=== PATIENT | male | born 1985 | race Caucasian/White ===

== ENCOUNTER 2021-06-01 10:44 | Outpatient (REF) | payer MEDICAID, SELFPAY ==
[2021-06-01 12:51] LABS: MANUAL DIFF FLAG NO
[2021-06-01 12:55] LABS: Eosinophils Absolute Auto 0.1 X10*3/uL (0.0-0.4); Eosinophils Percent Auto 0.9 % (0-4); Hematocrit 45.7 % (42-52); Hemoglobin 15.2 g/dl (14.0-18.0); Imm Gran Abs Auto 0.01 X10*3/uL (0.00-0.03); Imm Gran Pct Auto 0.2 % (0.0-0.4); Lymphocytes Absolute Auto 1.5 X10*3/uL (1.2-4.9); Lymphocytes Percent Auto 27.7 % (20-40); Mean Corpuscular HGB Conc 33.3 g/dl (31.0-36.0); Mean Corpuscular Hemoglobin 29.5 pg (27.0-33.0); Mean Corpuscular Volume 88.6 fL (80-98); Mean Platelet Volume 11.8 fL (9.4-12.4); Monocytes Absolute Auto 0.4 X10*3/uL (0.1-1.2); Neutrophils Absolute Auto 3.4 X10*3/uL (2.0-8.3); Neutrophils Percent Auto 64.2 % (45-73); Platelet Count 201 X10*3/uL (160-400); Red Blood Count 5.16 X10*6/uL (4.60-5.80); Red Cell Distribution Width 12.5 % (11.0-16.0); White Blood Count 5.3 X10*3/uL (4.8-10.8)
[2021-06-01 13:46] LABS: Alanine Aminotransferase 35 U/L (0-40); Albumin Level 4.7 g/dL (3.5-5.0); Alkaline Phosphatase 79 U/L (39-117); Anion Gap 15 (12-20); Aspartate Amino Transferase 20 U/L (5-37); Bilirubin Total 0.6 mg/dL (0.0-1.0); Blood Urea Nitrogen 9 mg/dL (9-16); Calcium 9.9 mg/dL (8.4-10.2); Carbon Dioxide 26 mmol/L (22-29); Chloride 103 mmol/L (96-108); Cholesterol 162 mg/dL; Estimated Glomerular Filt Rate > 60; Glucose Fasting 90 mg/dL (60-99); HDL Cholesterol 39 mg/dL; LDL Cholesterol Calculated 102 mg/dl; Potassium 4.4 mmol/L (3.3-5.1); Sodium 140 mmol/L (135-145); Total Protein 7.4 g/dL (6.5-8.0); Triglycerides 105 mg/dL
[2021-06-01 14:12] LABS: Thyroid Stimulating Hormone 1.67 uIU/mL (0.32-4.0)
[2021-06-05 01:27] LABS: Testosterone, Total 455 ng/dL (250-1100)
== END 2021-06-01 10:45 | disposition home or self-care (01) ==
LOC: HO.MANLDS 10:44
PROVIDERS: PCP Internal Medicine; Visit Provider Internal Medicine
DX: Z00.00 Encounter for general adult medical examination without abnormal findings (principal)
CPT/HCPCS: 36415; 80053; 80061; 82306; 84403; 84443; 85025

== ENCOUNTER 2022-03-18 15:56 | Outpatient (REF) | payer MEDICAID, SELFPAY ==
--- NOTE | ~2022-03-18 | US_ITS ---
EXAMINATION: ULTRASOUND EXTREMITY NONVASCULAR CLINICAL INFORMATION: Right axilla pain COMPARISON: None TECHNIQUE: Grayscale and color imaging of the right axilla using a linear transducer FINDINGS: No lymphadenopathy or solid or cystic soft tissue mass is seen. The right axillary artery and vein are patent and normal in caliber. US/US extremity nonvascular IMPRESSION: No abnormality seen by ultrasound.
== END 2022-03-18 15:57 | disposition home or self-care (01) ==
LOC: HO.US 15:56
PROVIDERS: PCP Internal Medicine; Visit Provider Physician Assistant
DX: M79.621 Pain in right upper arm (principal)
CPT/HCPCS: 76882

== ENCOUNTER 2022-10-12 16:00 | Outpatient (REF) | payer MEDICAID, SELFPAY ==
[2022-10-12 18:46] LABS: Alanine Aminotransferase 36 U/L (0-40); Albumin Level 4.6 g/dL (3.5-5.0); Alkaline Phosphatase 73 U/L (39-117); Anion Gap 10 (12-20); Aspartate Amino Transferase 18 U/L (5-37); Bilirubin Total 0.5 mg/dL (0.0-1.0); Blood Urea Nitrogen 16 mg/dL (9-16); Calcium 9.7 mg/dL (8.4-10.2); Carbon Dioxide 30 mmol/L (22-29); Chloride 103 mmol/L (96-108); Estimated Glomerular Filt Rate > 60; Glucose Random 81 mg/dL (60-115); Iron 109 mcg/dL (45-160); Magnesium 2.1 mg/dL (1.6-2.6); Percent Iron Saturation 36 % (15-50); Potassium 4.5 mmol/L (3.3-5.1); Sodium 138 mmol/L (135-145); Total Iron Binding Capacity 302 mcg/dL (228-428); Total Protein 7.2 g/dL (6.5-8.0); Unsaturated Iron Binding 193 ug/dL
[2022-10-12 19:02] LABS: Ferritin 47 ng/mL (20-250); Free T4 (Free Thyroxine) 0.96 ng/dL (0.71-1.85); Thyroid Stimulating Hormone 1.24 uIU/mL (0.32-4.0); Vitamin D 25-OH Total 48.5 ng/mL (>30)
[2022-10-12 19:16] LABS: Folate 10.6 ng/mL (> or = 4.0); Vitamin B12 1362 pg/mL (200-900)
== END 2022-10-12 16:01 | disposition home or self-care (01) ==
LOC: HO.MANLDS 16:00
PROVIDERS: Visit Provider Physician Assistant
DX: J02.8 Acute pharyngitis due to other specified organisms (principal); R53.83 Other fatigue
CPT/HCPCS: 36415; 80053; 82306; 82607; 82728; 82746; 83540; 83735; 84439; 84443; 87070

== ENCOUNTER 2023-04-28 15:23 | Outpatient (REF) | payer MEDICAID, SELFPAY ==
[2023-04-28 18:09] LABS: Alanine Aminotransferase 56 U/L (0-40); Albumin Level 4.7 g/dL (3.5-5.0); Alkaline Phosphatase 72 U/L (39-117); Anion Gap 10 (12-20); Aspartate Amino Transferase 26 U/L (5-37); Bilirubin Total 0.5 mg/dL (0.0-1.0); Blood Urea Nitrogen 10 mg/dL (9-16); Calcium 9.9 mg/dL (8.4-10.2); Carbon Dioxide 29 mmol/L (22-29); Chloride 103 mmol/L (96-108); Estimated Glomerular Filt Rate > 60; Glucose Random 89 mg/dL (60-115); Magnesium 2.1 mg/dL (1.6-2.6); Potassium 3.9 mmol/L (3.3-5.1); Sodium 138 mmol/L (135-145); Total Protein 7.5 g/dL (6.5-8.0)
[2023-04-28 18:25] LABS: Thyroid Stimulating Hormone 1.46 uIU/mL (0.32-4.0); Vitamin D 25-OH Total 48.7 ng/mL (>30)
[2023-04-28 18:30] LABS: Vitamin B12 699 pg/mL (200-900)
== END 2023-04-28 15:24 | disposition home or self-care (01) ==
LOC: HO.MANLDS 15:23
PROVIDERS: Visit Provider Internal Medicine
DX: E53.8 Deficiency of other specified B group vitamins (principal); R53.83 Other fatigue; E55.9 Vitamin D deficiency, unspecified
CPT/HCPCS: 36415; 80053; 82306; 82607; 83735; 84443

== ENCOUNTER 2025-07-23 09:22 | Outpatient (REF) | payer OTHER, SELFPAY ==
--- OUTSIDE RECORDS SUMMARY | 2025-07-23 10:34 | XMS_ITS | Data Portability ---
Author Organization [facility], Telehealth Patient Home Address [address] [place] [address] Assessment No assessment recorded. Plan of Treatment Reminders Order Date Submit Date Provider Last Modified By Organization Details Last Modified Time Details Appointments ANNUAL EXAM 2025 01:30P KENNETH FLOREZ Not available Not available Not available Lab CMP, serum or plasma 2024 025 [facility], [address] [place] [address], [id number], 06/30/2025 13:55:35 lipid panel, blood 2024 025 [facility], [address] [place] [address], [place], [address], 06/30/2025 13:55:35 CBC w/ auto diff 2024 025 [facility], [address] [place] [address], [address], 06/30/2025 13:55:36 vitamin D, 25-hydrox y, total, serum 2024 025 [facility], [address] [place] [address], [address], 06/30/2025 13:55:36 hemoglobi n A1c, QN, blood 2024 025 [facility], [address] [place] [address], [address], 06/30/2025 13:55:35 TSH + free T4, serum 2024 025 [email or web address] 10 [facility], [address] [place] [address], [address], 07/07/2025 08:28:35 cancer Ag 19-9, serum or plasma 2024 025 [facility], [address] [place] [address], [address], 06/30/2025 13:55:35 carcinoem bryonic Ag, quant, serum or plasma 2024 025 [facility], [address] [place] [address], [address], 06/30/2025 13:55:35 PSA, serum or plasma 2024 025 [facility], [address] [place] [address], [address], 06/30/2025 13:55:35 vitamin D, 25-hydrox y, total, serum 2022 023 [facility], [address] [place] [address], [address], 05/01/2023 11:31:53 vitamin B12, serum 2022 023 [facility], [address] [place] [address], [address], 05/01/2023 11:31:52 TSH, serum or plasma 2022 023 [facility], [address] [place] [address], [address], 05/01/2023 11:31:53 CMP, serum or plasma 2022 023 [facility], [address] [place] [address], [address], 05/01/2023 11:31:52 magnesium , serum or plasma 2022 023 [facility], [address] [place] [address], [address], 04/28/2023 15:25:23 culture, throat 2022 023 [facility], [address] [place] [address], [address], 10/14/2022 11:51:23 vitamin D, 25-hydrox y, total, serum 2022 023 [facility], [address] [place] [address], [address], 10/19/2022 09:13:45 vitamin B12 + folate, serum or blood 2022 023 [facility], [address] [place] [address], [address], 10/12/2022 15:55:16 CMP, serum or plasma 2022 023 [facility], [address] [place] [address], [address], 10/19/2022 09:13:45 TSH + free T4, serum 2022 023 [facility], [address] [place] [address], [address], 10/19/2022 09:13:46 magnesium , serum or plasma 2022 023 [facility], [address] [place] [address], [address], 10/12/2022 15:55:15 iron + TIBC + ferritin, serum 2022 023 [facility], [address] [place] [address], [address], 10/19/2022 09:13:46 TSH, serum or plasma 2022 023 [facility], [address] [place] [address], [address], 10/12/2022 15:55:15 Referral dermatolo gist referral 2024 025 [email or web address] 10 Andrea Esquivel MD, [address] [place] [address], [address], 07/14/2025 11:04:07 dermatolo gist referral 2023 024 [email or web address] Not available 02/05/2024 08:21:57 Procedures None recorded. Surgeries None recorded. Imaging XR, ankle, 3 or more view 2024 025 [facility], [address] [place] [address], [address], 01/01/2025 13:52:36 XR, foot, 3 or more view 2024 025 [facility], [address] [place] [address], [address], 01/01/2025 15:10:46 XR, ribs, unilatera l, 3 or more view 2022 023 [email or web address] [facility], [address] [place], [address], 10/19/2022 09:12:46 Medication Orders diclofena c sodium 75 mg tablet,de layed release 2024 025 [facility]Pharmacy #[id number], [address] [place], [address], 12/27/2024 11:36:20 triamcino lone acetonide 0.1 % topical cream 2023 025 [facility]/Pharmacy #2024, [address] [facility] [place], [address], 12/27/2024 11:23:06 Patient TargetsNo targets recorded. Patient InstructionsNo instructions recorded. Reason for Referral Color Laboratory Technician Referral for S kin lesion skin spot on face is now growing bigger, more easily irritated and bleeds Referring Physician: Alba Olivares, Internal Medicine, Encounter Date: 01/08/2024 Color Laboratory Technician Referral for P igmented skin lesion routine skin check, has some moles he wants looked at Referring Physician: Alba Olivares, Internal Medicine, Encounter Date: 06/30/2025 Results Created Date Observation Date Name Description Value Unit Range Abnormal Flag Note LastModifiedBy Organization Detail LastModifiedTime 09/26/20 22 09/26/2022 XR, ribs, unila teral , 2 view No observ ation record ed. [facility] [address] [place], [address], 09/26/2022 16:39:32 10/26/19 23 10/26/2022 XR, ribs, unila teral , 3 or more view No observ ation record ed. [facility] [address] [place], [address], 10/28/2022 14:25:39 01/02/20 25 01/01/2025 XR, ankle , 3 or more view No observ ation record ed. [facility] [address] [facility] [address], [place], [address], 01/06/2025 09:41:13 01/02/20 25 01/01/2025 XR, foot, 3 or more view No observ ation record ed. [facility] [address] [place], [address], 01/06/2025 09:41:14 Result Notes None recorded. Problems Name Problem SNOMED Code Status Onset Date Resolution Date Notes Provider Name and Address Organization Details Recorded Time Anxiety 40520214 Active 2017 Elva thomson [place] - [facility] 8 08:37:51 Disorder of vitamin B12 629372816 Active 2018 Otto Gresham, DO [address] [place] [address], [address], [facility] 9 11:31:54 Palpitati ons 60367811 Active 2018 Otto Gresham, DO [address] [place] [address], [address], [facility] 9 11:32:12 Vitamin D deficienc y 17773924 Active 2018 Otto Gresham, DO [address] [place] [address], [address], [facility] 9 11:49:25 Pain in axilla 086458049 Active 2021 KENNETH JAY [address] [place] [address], [address], [facility] 2 11:22:53 Pain in axilla 933502395 Active 2021 KENNETH JAY [address] [place], [address], [facility] Internal [facility] 2 11:23:09 Pain of shoulder region 95278403 Active 2021 KENNETH JAY [address] [place], [address], [facility] 2 12:30:08 Rib pain 003861006 Active 2021 KENNETH JAY [address] [place], [address], [facility] 2 12:46:33 Closed fracture of rib 08405026 Active 2022 KENNETH JAY [address] [place], [address], [facility] 3 15:44:56 Closed fracture of rib 29565066 Active 2022 KENNETH JAY [address] [place], [address], [facility] 3 15:45:05 Sore throat 849528918 Active 2022 KENNETH JAY [address] [place] [address], [address], [facility] 3 15:48:44 Fatigue 47248216 Active 2022 KENNETH JAY [address] [place] [address], [address], [facility] 3 15:49:30 Pain in right lower limb 683208931 Active 2022 KENNETH JAY [address] [place] [address], [address], [facility] 3 15:13:10 Skin lesion 64122168 Active 2023 KENNETH JAY [address] [place] [address], [address], [facility] 4 09:35:02 Pain of right ankle joint 663554474225 17798 Active 2024 KENNETH JAY [address] [place] [address], [address], [facility] 5 11:34:34 Pigmented skin lesion 216621374 Active 2024 KENNETH JAY [address] [place] [address], [address], [facility] 5 13:51:29 Problem Notes None recorded. Procedures Surgical History Date Name Laterality Status Provider Name and Address Organization Details Recorded Time 10/22/19 Family Practice Trigger Point Injection completed January SURINDER Bal [address] [place] [address], [address], [facility] 10/22/2019 14:34:42 Imaging Results None recorded. Procedure Notes None recorded. Medical Equipment None Reported. Allergies Allergen ID Allergen Name Allergen Category Reaction Reaction Severity Criticality Documentation Date Start Date Code Code System Note Provider Name and Address Organization Details Recorded Time 2904 adhesive environme nt,medica tion rash Not available Not available 12/19/2018 Elva Nunez [facility] 9 11:13:23 Medications Name Sig Start Date Stop Date Status Note LastModified by Organization Details LastModified Time Vitamin B-12 1,000 mcg/mL injection solution Inject 1 mL every month by intramusc ular route. 02/12 completed Not Available Not Available Not Available benzonatate 200 mg capsule Take 1 capsule 3 times a day by oral route. 02/20 completed Not Available Not Available Not Available triamcinolo ne acetonide 0.1 % topical cream APPLY A THIN LAYER TO THE AFFECTED AREA(S) BY TOPICAL ROUTE 2 TIMES PER DAY 12/27 completed Not Available Not Available Not Available Cipro 500 mg tablet Take 1 tablet every 12 hours by oral route for 10 days. 08/23 completed Not Available Not Available Not Available diclofenac sodium 75 mg tablet,sasha yed release TAKE 1 TABLET TWICE A DAY BY ORAL ROUTE WITH MEAL(S) FOR 30 DAYS. active Not Available Not Available No t Available COVID-19 test specimen collection TEST DIRECTED 06/01 completed Not Available Not Available Not Available Vitals Date Recorded Body height Heart rate Oxygen saturation Oxygen saturation in Arterial blood by Pulse oximetry Systolic And Diastolic Provider Name and Address Organization Details Last Updated DateTime 3 182.88 cm 71 /min 98 % 98 % 118/78 mm[Hg] Elva Nunez [facility] 3 15:25:44 Date Recorded Body height Body mass index (BMI) Body weight Heart rate Oxygen saturation Oxygen saturation in Arterial blood by Pulse oximetry Systolic And Diastolic Provider Name and Address Organization Details Last Updated DateTime 5 182.88 cm 26.9 kg/m2 83394.2 9 g 88 /min 96 % 96 % 126/82 mm[Hg] KENNETH JAY [address] [place], [address], [facility] Internal [facility] 5 11:24:17 Date Recorded Body height Body mass index (BMI) Body weight Heart rate Oxygen saturation Oxygen saturation in Arterial blood by Pulse oximetry Systolic And Diastolic Provider Name and Address Organization Details Last Updated DateTime 4 182.88 cm 26.4 kg/m2 59229.5 1 g 84 /min 99 % 99 % 110/78 mm[Hg] KENNETH JAY [address] [place], [address], [facility] 4 09:30:55 Date Recorded Body height Body mass index (BMI) Body weight Heart rate Oxygen saturation Oxygen saturation in Arterial blood by Pulse oximetry Systolic And Diastolic Provider Name and Address Organization Details Last Updated DateTime 3 182.88 cm 25.8 kg/m2 83463.5 5 g 70 /min 98 % 98 % 100/80 mm[Hg] Jessica Jake [facility] 3 14:36:16 Date Recorded Body height Body mass index (BMI) Body weight Heart rate Oxygen saturation Oxygen saturation in Arterial blood by Pulse oximetry Systolic And Diastolic Provider Name and Address Organization Details Last Updated DateTime 5 182.88 cm 26.9 kg/m2 97073.2 9 g 72 /min 98 % 98 % 120/70 mm[Hg] Jessica [facility] 5 13:35:50 Social History Question Answer Notes LastModified by Organizat ion Details LastModified Time Tobacco Smoking Status Never Smoker Not Available [facility] 08/11/2020 03:36:24 What Was The Date Of Your Most Recent Tobacco Screening? 06/30/2025 Information not available 06/30/2025 Sex: Unknown Functional Status Question Answer Note LastModified by Organization D etails LastModified Time Do you or have you ever used any other forms of tobacco or nicotine? No [email or web address] Information not available 04/28/2023 Mental Status None recorded. Family History Relationship Description Onset Age of this Age Resolved Age Notes LastModified by Organization Details LastModified Time Maternal Grandfather Disorder of cardiovascul ar system 83 [email or web address] Not available 2024 13:39:17 Medical History No medical history recorded. Immunizations Vaccine Type Date Status Note Provider Nam e and Address Organization Details Recorded Time COVID-19, mRNA, LNP-S, PF, 30 mcg/0.3 mL dose 01/29/2021 completed Suzette Parkinson O [address] [place], [address], [facility] 06/01/2021 10:05:58 COVID-19, mRNA, LNP-S, PF, 30 mcg/0.3 mL dose 02/22/2021 completed Suzette Parkinson [address] [place], [address], [facility] Internal [facility] 06/01/2021 10:06:02 Past Encounters Encounter ID Performer Location Encounter Start Date Encounter Closed Date Diagnosis/Indication Diagnosis SNOMED-CT Code Diagnosis ICD10 Code Diagnosis IMO Codes Diagnosis Note [id number] Otto Gresham [facility] Internal [address] [address] 09/17/2018 13:53:58 09/17/2018 16:57:33 Intermittent palpitations 764427104 R00.2 Atypical chest pain 1025 15927 R07.89 as above as part of the workup [id number] Otto Gresham [facility] [address] [address] 09/21/2018 11:32:24 09/21/2018 13:28:21 Vitamin D deficiency 78209328 E55.9 will start with vit D3 rplacemnt and rec in 3 months Vitamin B1 2 deficiency (non anemic) 27434069 E53.8 will begin 1000mcg inj q week X4 then chk level [id number] Otto Gresham [facility] Medicine [address] [place] [address] [place] [address] 09/28/2018 09:35:24 09/28/2018 16:02:58 Cobalamin deficiency 498038735 E53.8 [id number] Otto Gresham [facility] [address] [address] 10/05/2018 09:25:11 10/05/2018 12:35:33 Cobalamin deficiency 215712762 E53.8 [id number] Otto Gresham [facility] [address], ite [facility] [place] [address] 10/10/2018 10:58:33 10/10/2018 11:43:08 Disorder of vitamin B12 401149374 E53.8 cont the inj for next couple weeks then rechk level Palpitations 33663184 R0 0.2 seem more stable and is being monitored by cardiac event recorder areviewed echo was excellent and had no valvular abnorm [id number] Otto Gresham [facility] [address],[place] [address] 10/12/2018 09:31:03 10/12/2018 11:25:24 Cobalamin deficiency 249348248 E53.8 [id number] Otto Gresham [address],[place] [address] 10/24/2018 09:31:28 10/24/2018 10:00:32 Cobalamin deficiency 951034632 E53.8 [id number] Otto Gresham [facility] [address],[place] [address] 12/19/2018 11:09:52 12/19/2018 11:46:23 Disorder of vitamin B12 970995494 E53.8 will take oral doses of b12 and we will check in 2 months Vitamin D deficiency 347 09221 E55.9 will cont with vit D3 replacemen t and rec in 2 months [id number] Otto Gresham [facility] [address], ite [facility] [place] [address] 02/08/2019 11:20:55 02/08/2019 12:21:10 Viral pharyngitis 7694162 J02.8 rapid strep is negative antonia send out culture info re secondary pneumonia and to call if any change Otto Gresham [facility] [address], ite D [facility] [place] [address] 02/12/2019 13:46:36 02/12/2019 14:48:53 Cough 87722843 R05 Otto Gresham [facility] [address] [place] [address] 02/20/2019 11:42:48 02/20/2019 13:37:10 Anxiety 95300339 F41.9 stable right now Disorder o f vitamin B12 459628608 E53.8 will take oral doses of b12 and we will check in 2 months not b complex [id number] Otto Gresham [address],[place] [address] 05/15/2019 11:21:00 05/15/2019 11:54:48 Vitamin D deficiency 30661140 E55.9 level has dropped again will cont with vit D3 replacemen t and rec in 2 months Cobalamin deficiency 190 953919 E53.8 will have him get level in a month wondering if he is not absorbing ppo supp Dysplastic nevus of skin 738880609 D22.9 derm refer [id number] Otto Gresham [address] [address] 07/29/2019 12:07:05 07/29/2019 14:17:37 Injury of head 20325819 S09.90XA stable a nd asymptomat ic gave head wound precaution talk Pain in right foot 68909 08453 40131 M79.671 seemed to occur after a new pair of shoe pain is acros the dorsum but extends to the sole and its across the metatarsal s of the right foot willl order xray if unhelpful will have the fuel dock attendant see him [id number] Otto Gresham [address] [address] 08/09/2019 09:14:40 08/09/2019 09:50:35 Orchitis and epididymitis 012725323 N45.3 will tx with abx also add pro-biotic Pain in right foot 57948 58285 44658 M79.671 seemed to occur after a new pair of shoe pain is acros the dorsum but extends to the sole and its across the metatarsal s of the right foot willl order xray if unhelpful will have the fuel dock attendant see him [id number] Otto Gresham [address],[place] [address] 08/12/2019 11:12:59 08/12/2019 11:57:49 Disorder of vitamin B12 618517749 E53.8 will take oral doses of b12 and we will check in 2 months to see if it drops off denoting true intrinsic factor loss vs diet b12 def rechk 2 mo Vitamin D deficiency 347 01036 E55.9 level has dropped again will cont with vit D3 replacemen t and rec in 2 months [id number] Otto Gresham [facility] Medicine [address] [facility],[place] [address] 08/23/2019 11:14:21 08/23/2019 12:04:36 Right lower quadrant pain 637830165 R10.31 almost resolved do not think that CT at this time is warranted, but if pain worsens would order pt will monitor and call if that's the case [id number] January SURINDER Bal [facility] Medicine [address] [facility],[place] [address] 10/22/2019 13:51:09 10/22/2019 14:48:22 Cervico-occipital neuralgia 11929329 M54.81 under supervisio n, an occipital nerve block was performed and was technicall y successful . immediatel y following the injection the dull pain the patient was feeling felt relieved. while in the office he had 2 more very brief shock like pains. we will give it more time to kenalog to take effect Olfactory hallucinations 32209003 R44.2 unclear of this significan ce may want to consult neuro or get some brain imaging Fatigue 43000586 R53.83 Vitamin D deficiency 347 21024 E55.9 [id number] Otto Gresham [facility] Medicine [address] [facility],[place] [address] 12/09/2019 14:04:00 12/09/2019 14:48:00 Normocytic anemia 137906013 D64.89 [id number] Otto Gresham [facility] Medicine [address] [facility],[place] [address] 03/17/2020 16:05:50 03/17/2020 16:18:57 Occult blood detected in feces 79730824 R19.5 [id number] Otto Gresham [facility] Internal [facility] [address] [facility],[place] [address] 03/23/2020 14:43:57 03/23/2020 15:37:05 Lateral epicondylitis 854971492 M77.11 will send to orthopedic s for eval and imaging to r/o tear is good with APAP for now [id number] Otto Gresham [facility] Internal [facility] [address] [facility], [place] [address] 06/01/2021 09:57:19 06/01/2021 12:08:31 Active or passive immunization 890945798 Z23 Adult heal th examination 145720094 Z00.00 doing great except for poss right knee strain will let me knowalso has small sun damage spot on left cheek that he will watch [id number] Otto Gresham [facility] [address] [facility],[place] [address] 01/14/2022 10:49:45 01/17/2022 11:29:21 Pain in axilla 589508750 M79.629 will fu with US axilla to determine if it is a swollen LN causing pain [id number] Otto Gresham [facility] [address] [facility], [place] [address] 09/26/2022 11:24:59 09/26/2022 13:18:06 Rib pain 288286502 R07.81 will fu with XR ribs to determine if he has a fracture [id number] Otto Gresham [facility] Internal [facility] [address] [facility], [place] [address] 10/12/2022 15:19:22 10/13/2022 12:19:37 Closed fracture of rib 46172005 S22.31XA will fu with recheck XR Sore throat 761693459 J0 2.8 will send out for culture Fatigue 77793247 R53.83 will do lab work uphe is a vegetarian [id number] Otto Gresham [facility] [address] [facility],[place] [address] 04/28/2023 14:26:21 04/28/2023 15:30:32 Disorder of vitamin B12 634710616 E53.8 will take oral doses of b12 and we will check in 2 months to see if it drops off denoting true intrinsic factor loss vs diet b12 def rechk 2 mo Fatigue 49293488 R53.83 cbc Vitamin D deficiency 347 46269 E55.9 level has dropped again will cont with vit D3 replacemen t and rec in 2 months [id number] Otto Gresham [facility] Internal Medicine [address] [facility],[place] [address] 01/08/2024 09:27:26 01/08/2024 10:44:05 Skin lesion 37079979 L98.9 will set up with topical steriod for the inflammati on and drynesswil l work on a derm for the patient [id number] Otto Gresham [facility] Internal Medicine [address] [facility],[place] [address] 12/27/2024 11:15:15 12/27/2024 13:46:41 Pain of right ankle joint 1722230646 5558658 M25.571 will have him brace, ice, and NSAIDwill have XR side upprobably sprain vs ligament tear medial side ATF ligament [id number] Otto Gresham [facility] Internal Medicine [address] [facility], [place] [address] 06/30/2025 13:29:16 06/30/2025 14:07:48 Depression screening 740609473 Z13.31 negative General ex amination of patient 946538243 Z00.00 236271 BP is excellentn ot changes Screening for malignant neoplasm of prostate 144400981 Z12.5 918374 ?fam hx Screening for malignant neoplastic disease 51447086 Z12.9 [id number] would like screening Pigmented skin lesion 20 5142379 D22.9 152875 Health Concerns Section Related Observation LastModified by Organization Detai ls LastModified Time None Recorded Concern Status LastModified by Organization Details LastModified Time None Recorded Advance Directives Directive None Recorded Payers Insurance Date Sequence Insurance Name Policy Number Policy Liu Covered Member ID Liu Member ID Guarantor Name 01/08/2024 1 [place] PRIOR TO 2023 - [facility] (MEDICAID) Melvin Barksdale [id number] Melvin [place] 01/08/2024 1 [place] PR[place] 2023 - [facility] (MEDICAID) Melvin Barksdale [id number] Melvin Barksdale 12/27/2024 1 [place] Melvin Barksdale [id number] Melvin Barksdale 06/30/2025 1 [facility] - DIRECT CONNECTORCARE TYPE I (HMO) [id number] Melvin Barksdale [id number] Melvin [place] Notes Date Note Type Note Provider Name a nd Address Organization Details Recorded Time 3 text/html ROS as noted in the HPI f/u rib fx 5th right rib the patient reports that he is doing really after his rib fxpain has resolvedwill recheck healing of rib fx ongoing fatiguehx of vit def both b12 and dneeds recheck sore throat > possible tonsil stonesagreed to culture to r/o other causes KENNETH JAY [address] [place], [id number], [facility] 10/12/2022 16:20:55 3 text/html ROS as noted in the HPI here for rechk and is doing ok overallno major problemshas noted some pain in right ankle noted for months better now but will let me know if worse we antonia ll xray Otto Gresham DO [address] [place], [id number], [facility] 04/28/2023 15:21:42 4 text/html ROS as noted in the HPI sun spot on face the patient has a spot on the face that he has had for yearsnow getting bigger and more irritation than usual it is on the left upper check, brown in color, uniform color throughout but irregular border will work on finding a blanker press operator for the patient since he has [facility] the patient reports that he had a little bit of soreness in his backresolved on it's on own KENNETH JAY [address] [place], [id number], [facility] 01/08/2024 12:54:26 5 text/html ROS as noted in the HPI c/o right foot the patient reports right foot pain, along the medial side of the heelfeel like it inverts and pulls when he puts pressure on it if his is engaging the no numbness or tingling in the foot the patient reports that the left foot feels fine the patient denies injury or traumathe patient denies any weakness, can bear weight finenoticing every day, has been about a week to two weeks he has had the issue recommended f/u with XRs KENNETH JAY [address] [place], [id number], [facility] 12/27/2024 11:40:54 5 text/html Annual WellnessReported by PatientSocial/Behavio ral HistoryFor diet and nutrition, patient reportshealthy diet,discussed vitamin and supplement use,discussed portion control,discussed maintaining calcium balance, anddiscussed diet improvement. For fracture risk, patient reportsno history of fractures,no recent explained fracture,no sudden unexplained fractures, andno previous musculoskeletal injuries. For physical activity, patient reportsexercises on a regular basis,recent increase in physical activity, andgood physical condition. For additional lifestyle factors, patient reportsno tobacco use,no alcohol intake, andstopped drinking alcohol.Mental Status:For depression risk, patient reportsnever feels sad, empty, or tearful,no loss of interest in activities,no significant changes in weight,no sleep disturbances or insomnia,no agitation,no loss of energy,no feelings of worthlessness or guilt,no thoughts of suicide,no history of depression, andno history of mood disorders.Functional AbilityFor hearing, patient reportsno loss of hearing. For vision, patient reportsno vision problems.ROS as noted in the HPI BP is excellent KENNETH JAY [address] [place], [address], [facility] 06/30/2025 13:57:27
[2025-07-23 13:05] LABS: MANUAL DIFF FLAG NO
[2025-07-23 13:18] LABS: Hematocrit 43.7 % (42.0-52.0); Hemoglobin 14.8 g/dl (14.0-18.0); Imm Gran Abs Auto 0.01 X10*3/uL (0.00-0.03); Imm Gran Pct Auto 0.2 % (0.0-0.4); Lymphocytes Absolute Auto 1.5 X10*3/uL (1.2-4.9); Mean Corpuscular HGB Conc 33.9 g/dl (31.0-36.0); Mean Corpuscular Hemoglobin 29.8 pg (27.0-33.0); Mean Corpuscular Volume 88.1 fL (80.0-98.0); NRBC Abs Auto 0.000 X10*3/uL (0.0-0.012); NRBC Pct Auto 0.0 /100WBC (0.0-0.2); Platelet Count 205 X10*3/uL (160-400); Red Blood Count 4.96 X10*6/uL (4.60-5.80); White Blood Count 5.0 X10*3/uL (4.8-10.8)
[2025-07-23 13:35] LABS: Hemoglobin A1C 129.4767 umol/L; Total Hemoglobin (HGBA1C) 3779.8455 umol/L
[2025-07-23 14:21] LABS: Prostate Specific Antigen 0.35 ng/mL (<0.05-4.0)
[2025-07-23 14:44] LABS: Alanine Aminotransferase 44 U/L (0-40); Albumin Level 4.5 g/dL (3.5-5.0); Alkaline Phosphatase 68 U/L (39-117); Anion Gap 10 (12-20); Aspartate Amino Transferase 26 U/L (5-37); Blood Urea Nitrogen 11 mg/dL (9-16); Calcium 9.2 mg/dL (8.4-10.2); Carbon Dioxide 26 mmol/L (22-29); Carcinoembryonic Antigen < 1.73 ng/mL; Chloride 109 mmol/L (96-108); Cholesterol 140 mg/dL (<200); Estimated Glomerular Filt Rate > 60; HDL Cholesterol 32 mg/dL (>40); Potassium 4.0 mmol/L (3.3-5.1); Sodium 141 mmol/L (135-145); Total Protein 6.8 g/dL (6.5-8.0); Triglycerides 99 mg/dL (<150)
== END 2025-07-23 09:23 | disposition home or self-care (01) ==
LOC: HO.MANLDS 09:22
PROVIDERS: Visit Provider Physician Assistant
DX: Z00.00 Encounter for general adult medical examination without abnormal findings (principal); Z12.5 Encounter for screening for malignant neoplasm of prostate; Z12.9 Encounter for screening for malignant neoplasm, site unspecified; Z13.1 Encounter for screening for diabetes mellitus; Z13.6 Encounter for screening for cardiovascular disorders
CPT/HCPCS: 36415; 80053; 80061; 82306; 82378; 83036; 84153; 84443; 85025; 86301